=== PATIENT | female | born 1985 | race Caucasian/White ===

== ENCOUNTER 2023-04-23 15:10 | Outpatient (CLI) | payer BC | END 2023-04-23 15:11 | disposition home or self-care (01) | LOC: RAD-FRANK 15:10 | PROVIDERS: ATTEND Nurse Practitioner Family | DX: J16.8 Pneumonia due to other specified infectious organisms (principal) | CPT/HCPCS: 71046 ==

== ENCOUNTER 2024-09-29 08:26 | Outpatient (CLI) | payer BC | END 2024-09-29 08:27 | disposition home or self-care (01) | LOC: BICMAMMO 08:26 | PROVIDERS: ATTEND Nurse Practitioner Family | DX: N64.4 Mastodynia (principal) | CPT/HCPCS: 77066; G0279 ==